=== PATIENT | male | born 1960 | race Caucasian/White ===

== ENCOUNTER 2017-06-01 14:54 | Emergency (ER) | payer MEDICAID ==
[2017-06-01 15:14] VITALS: BMI 30.3
[2017-06-01 15:16] VITALS: BP 126/87; PULSE 67; TEMP 97.8; O2SAT 95
--- NOTE | 2017-06-01 16:22 | C.PDOC ---
History Of Present Illness 56 y/o male presents to ED with complaints of injury to left chest. Pt was playing tennis 4 days ago when he tripped and fell. Pt now complaining of left rib pain, worse with palpation, deep breathing and coughing. Pt did not take any analgesics, but he did apply an OTC cream without relief. No other injury. Denies SOB, vomiting, headache or any other complaints. Time Seen by Provider: 06/01/17 15:20 Chief Complaint (Nursing): Rib Injury History Per: Patient History/Exam Limitations: no limitations Onset/Duration Of Symptoms: Days Current Symptoms Are (Timing): Still Present Severity: Moderate Recent travel outside of the [place]: No Past Medical History Reviewed: Historical Data, Nursing Documentation, Vital Signs Vital Signs: Last Vital Signs Temp 97.8 F 06/01/17 15:14 Pulse 67 06/01/17 15:14 Resp 18 06/01/17 16:30 BP 126/87 06/01/17 15:14 Pulse Ox 95 06/01/17 17:01 - Medical History PMH: Benign Prostatic Hyperplasia, Gastritis, HTN, Hypercholesterolemia Surgical History: Tonsillectomy Family History: States: Unknown Family Hx - Social History Hx Tobacco Use: No Hx Alcohol Use: No Hx Substance Use: No - Immunization History Hx Tetanus Toxoid Vaccination: No Hx Influenza Vaccination: Yes Hx Pneumococcal Vaccination: No Review Of Systems Cardiovascular: Positive for: Other (chest and rib pain) Respiratory: Negative for: Shortness of Breath Gastrointestinal: Negative for: Vomiting Musculoskeletal: Positive for: Other (left rib pain) Neurological: Negative for: Headache Physical Exam - Physical Exam Appears: Non-toxic, No Acute Distress Skin: Warm, Dry, No Rash Head: Atraumatic, Normacephalic Eye(s): bilateral: Normal Inspection Neck: Normal, Normal ROM, Supple Chest: Symmetrical, Tenderness (anterolateral 5-7th ribs on left side of chest) , No Ecchymosis, No Subcutaneous Emphysema Cardiovascular: Rhythm Regular, No Murmur Respiratory: Normal Breath Sounds, No Accessory Muscle Use, No Rales, No Rhonchi , No Wheezing Gastrointestinal/Abdominal: Normal Exam, Soft, No Tenderness Back: Normal Inspection, No Vertebral Tenderness, No Paraspinal Tenderness Extremity: Bilateral: Atraumatic, Normal ROM Neurological/Psych: Oriented x3, Normal Speech Gait: Steady ED Course And Treatment O2 Sat by Pulse Oximetry: 95 (room air) Pulse Ox Interpretation: Normal Medical Decision Making Medical Decision Making: Plan: * XR ribs and chest * toradol XR negative for rib fracture, no pneumothorax. Pt feeling better with pain relief after given toradol. Disposition Counseled Patient/Family Regarding: Diagnosis, Need For Followup, Rx Given - Disposition Disposition: HOME/ ROUTINE Disposition Time: 16:19 Condition: STABLE Additional Instructions: Vaya a barrera mdico o la clnica en 2-5 chatman sin falta, para mas evaluacin. [place] los medicamentos yary indicado. Volver a la gifty de emergencia en cualquier momento si los sntomas persisten o empeoran. Prescriptions: Ibuprofen [Motrin] 600 mg PO Q8 #30 tab Instructions: Rib Contusion (ED) Forms: [email or web address] ([place]) Print Language: [place] - POA Present On Arrival: None - Clinical Impression Clinical Impression: Contusion of rib on left side - PA / [employer] REPRESENTATIVE / Resident Statement MD/DO has reviewed & agrees with the documentation as recorded. - Scribe Statement The provider has reviewed the documentation as recorded by the Scribe Nilay Rojo All medical record entries made by the Scribe were at my direction and personally dictated by me. I have reviewed the chart and agree that the record accurately reflects my personal performance of the history, physical exam, medical decision making, and the department course for this patient. I have also personally directed, reviewed, and agree with the discharge instructions and disposition.
[2017-06-01 16:40] VITALS: RESP 18
--- NOTE | 2017-06-01 16:40 | RAD ---
PROCEDURE: Radiographs of the Chest and Left Ribs. HISTORY: left rib pain s.p fall and injury COMPARISON: 03/31/2015.. TECHNIQUE: Frontal radiograph of the chest and multiple oblique radiographs of the left ribs were obtained. FINDINGS: LEFT RIBS: No fracture or focal lesion visualized. LUNGS: Clear. PLEURA: No pneumothorax or pleural fluid. CARDIOVASCULAR: Normal sized heart. No pulmonary vascular congestion. OTHER FINDINGS: None. IMPRESSION: Unremarkable radiographs of the chest and left ribs. No left rib fracture. No preliminary report provided by emergency department personnel.
== END 2017-06-01 16:40 | disposition home or self-care (01) ==
LOC: C.ER 14:54
DX: S20.212A Contusion of left front wall of thorax, initial encounter (principal); W01.0XXA Fall on same level from slipping, tripping and stumbling without subsequent striking against object, initial encounter; Y93.73 Activity, racquet and hand sports
CPT/HCPCS: 71101; 96372; 99284; J1885